=== PATIENT | female | born 1950 | race Caucasian/White ===

== ENCOUNTER → 2017-06-18 | Outpatient (CLI) | payer MEDICARE, OTHER | END | disposition home or self-care (01) | LOC: CFH 13:41 | PROVIDERS: ATTEND Internal Medicine | DX: Z13.820 Encounter for screening for osteoporosis (principal); M85.88 Other specified disorders of bone density and structure, other site | CPT/HCPCS: 77080 ==

== ENCOUNTER 2020-04-28 09:31 | Emergency (ER) | payer MEDICARE, OTHER ==
[~2020-04-28] VITALS: Ht 157.5 cm; Wt 65.0 kg
--- NOTE | 2020-04-28 09:50 | NUR ---
First contact with pt. Pt c/o intermittent low abd pain described as "cramping" with N/V since last night. Pt's family member at bedside who states pt has had multiple syncopal episodes starting last night. Pt A&O x4, denies pain currently but is nauseated. Pt placed in gown and positioned for comfort in bed with warm blankets. Continuous heart, oxygen and BP monitors applied, all safety measures observed.
[2020-04-28] MEDS ORDERED: MECLIZINE CHEWABLE 25 MG TAB ONE (10:49)
[2020-04-28] MEDS ORDERED: ONDANSETRON 2MG/ML, 2ML ONE (10:49)
[2020-04-28 10:57] LABS: BASOPHILS % (AUTO) 0 % (0-1); EOSINOPHILS # (AUTO) 0.03 x10^3/uL (0-0.4); EOSINOPHILS % (AUTO) 0 % (1-7); LYMPHOCYTES % (AUTO) 8 % (22-44); MD NO; MEAN CORPUSCULAR HEMOGLOBIN 30.3 pg (27.0-34.8); MEAN CORPUSCULAR HGB CONC 33.2 g/dL (32.4-35.8); MEAN CORPUSCULAR VOLUME 91.3 fL (80-100); MEAN PLATELET VOLUME 8.8 fL (7.4-10.4); MONOCYTES # (AUTO) 0.42 x10^3/uL (0.2-0.8); MONOCYTES % (AUTO) 4 % (2-9); NEUTROPHILS # (AUTO) 9.52 x10^3/uL (1.8-6.8); NEUTROPHILS % (AUTO) 88 % (42-75); PLATELET COUNT 278 x10^3/uL (130-400); RED BLOOD COUNT 4.91 x10^6/uL (3.82-5.3); RED CELL DISTRIBUTION WIDTH 12.9 % (9.6-15.2)
--- NOTE | 2020-04-28 10:58 | NUR ---
Pt medicated for dizziness and nausea per MAR. Pt denies pain currently. Pt positioned for comfort in bed with Jt Paw warmer as she states she still feels chilled. POC discussed with pt. Pt states she is unable to provide urine sample at this time.
[2020-04-28] MEDS ORDERED: MECLIZINE CHEWABLE 25 MG TAB PO ONE (11:00)
[2020-04-28] MEDS ORDERED: ONDANSETRON 2MG/ML, 2ML IVPush ONE (11:00)
[2020-04-28] MEDS ORDERED: SODIUM CHLORIDE FLUSH 10ML SYR IVF ONE (11:00)
[2020-04-28 11:07] LABS: ALBUMIN 4.3 g/dL (3.4-5.0); ANION GAP 5 mmol/L (5-15); CALCIUM 9.7 mg/dL (8.5-10.1); CHLORIDE 105 mmol/L (98-107)
[2020-04-28 11:09] LABS: TROPONIN I < 0.015 ng/mL (0.000-0.045)
--- NOTE | 2020-04-28 11:30 | NUR ---
Pt states "I feel normal now", denies dizziness or nausea at this time. Pt provided with ice chips per request. Pt to MRI via gurney at this time.
--- NOTE | 2020-04-28 11:58 | NUR ---
BREAK RN FOR PRIMARY RN TAMARA, PT IN MRI AT THIS TIME
--- NOTE | 2020-04-28 12:29 | NUR ---
REPORT AND TRANSFER OF CARE BACK TO PRIMARY TAMARA AT THIS TIME.
[2020-04-28] MEDS ORDERED: DIAZEPAM 5 MG/ML, 2ML IV ONE (12:30)
[2020-04-28 13:06] VITALS: BP 139/94
== END 2020-04-28 13:08 | disposition home or self-care (01) ==
LOC: ED 11:32
DX: H81.11 Benign paroxysmal vertigo, right ear (principal); I10 Essential (primary) hypertension; R55 Syncope and collapse; R11.0 Nausea; R94.31 Abnormal electrocardiogram [ECG] [EKG]
CPT/HCPCS: 36415; 70551; 80048; 82040; 84484; 85025; 93005; 96374; 99285; J2405